=== PATIENT | male | born 1930 | race Caucasian/White ===

== ENCOUNTER 2019-07-16 03:34 | Inpatient (IN) | payer OTHER ==
[~2019-07-16] VITALS: Ht 152.4 cm; Wt 45.4 kg
[2019-07-16 03:20] VITALS: BP 125/68
--- NOTE | 2019-07-16 05:56 | NUR ---
Assumed care of patient this shift. Patient transferred here from [facility] Emergency room. Patient presents to [facility] wanting to get treatment for anxiety and depression. Patient felt like he was becoming a great burden on his family. Patient also believed that he broke the HIPPA laws and that heavy fines would follow. Patient is in good spirits upon arrival. Patient is calm and cooperative. Patient states that he only felt like killing himself so that his family would not be burdened. Patient states that he thought about using a gun but could not because that goes against his Sabianism beliefs. Patient states to RN that he wants to get treatment so that he can live life to its fullest. Patient is ambulatory. Patients assessment shows clear breath sounds, active bowel sounds, and s1 s2 heard with auscultation. We will continue to monitor per protocol.
[2019-07-16 07:47] VITALS: BP 181/93
--- NOTE | 2019-07-16 18:34 | NUR ---
0700 ASSUMED CARE OF PATIENT, PATIENT IN ROOM AT THAT TIME. PATIENT TO DAYROOM FOR BREAKFAST AT 0800, PATIENT QUIET AND CALM DENIED NEEDS AT THAT TIME. PATIENT TAKES MEDICATION WHOLE WITHOUT DIFFICULTY. PATIENT ASKS RED HAT OPEN STACK ADMINISTRATOR TO GO TO ROOM TO TALK. PATIENT STATES "I DO NOT BELONG HERE, I AM NOT CRAZY". "I TALKED TO AND THESE PEOPLE INCREASES MY ANXIETY, SO I ASKED HIM TO DC ME." "DR STATED MAYBE MONDAY". PATIENT STAYS IN ROOM MOST OF THE TIME AND TRYS NOT TO MINGLE WITH OTHERS. PATIENT LUNG SOUNDS CLEAR, BS ACTIVE, DENIES OTHER NEEDS.
--- NOTE | 2019-07-16 19:11 | NUR ---
0700 ASSUMED CARE OF PATIENT, PATIENT IN DAYROOM AT THAT TIME. PATIENT A+O AT THAT TIME, PATIENT CALM AND COOPERATIVE. PATIENT LUNG SOUNDS CLEAR, BS ACTIVE, DENIED PAIN. PATIENT SITS AT TABLE FOR BREAKFAST. 0810 PATIENT SITS WITH FIRST ASSISTANT MANAGER TO DISCUSS WHAT HE IS FEELING AND SAYS " I SAID SOMETHING THE OTHER DAY AND NO ONE BELIEVES ME. THIS IS THE END OF THE WORLD. I WILL NOT BE ABLE TO FUNCTION ANYMORE THE WORLD IS UNABLE TO TAKE CARE OF A BODY. I ASKED MY SON FOR HIS DESTINI AND THOUGHT OF SHOOTING MYSELF. i SHOULD HAVE TAKEN MY LIFE. HE GOT THE WHOLE WORLD IN HIS HANDS. MY MIND HAS BEEN CALM AND PRAYING A LOT TO GET THROUGH THIS. I STARTED THE TEST BUT COULD NOT FINISH IT. (REFERING TO TESTING WITH DR AHUJA)." PATIENT THEN EXPLAINS HOW HE DID NOT WANT TO BE A BURDEN TO FAMILY AND WAS AFFRAID HE VIOLATED HIPAA LAW BUT NOW KNOWS HE DID NOT. PATIENT AMBULATES IN HARDY WANDERING. PATIENT STANDS AT NURSES STATION AT TIMES AND GLARES OVER DOOR. APPEARS TO BE FRUSTRATED AND UNABLE TO PROCESS QUESTIONS ASKED BY FIRST ASSISTANT MANAGER. FIRST ASSISTANT MANAGER NOTED ORIENTATION OF PATIENT HAS DECREASED THROUGH OUT THE DAY. PATIENT REFUSED DINNER EVEN WITH ASSISTANCE BY FIRST ASSISTANT MANAGER, PATIENT PUSHES WRITERS HAND AWAY WHEN FIRST ASSISTANT MANAGER ATTEMPTED TO GIVE MEDICATION. MEDICATION GIVEN CRUSHED IN PUDDING. REPORT HAS BEEN GIVEN TO ONCOMING SHIFT.
[2019-07-16 21:09] VITALS: BP 169/90
--- NOTE | 2019-07-17 05:01 | NUR ---
Assumed care of pt @ 1900. Pt calm et cooperative with pleasant demeanor. Took medications whole without difficulty. Ambulates the halls ad eliza with steady gait. Socialized in dayroom with peers off et on until HS. B/P initially elevated but went down upon recheck. Health assessment with no abnormalities noted at present time. Denies SI/HI. Mild confusion later in shift when patient asked to go out front door. Currently resting in bed with eyes closed. Will continue to monitor per protocol.
--- NOTE | 2019-07-17 09:24 | NUR ---
SW attempted to meet with pt but he was hostile and confused , Sw then called spouse and left a VM. No return call yet. Called a second time 07/16 and left another VM. KARLENE will attempt to visit with pt again today
[2019-07-17 09:34] VITALS: BP 141/75
--- NOTE | 2019-07-17 13:51 | NUR ---
GREGOR called and spoke with Alberto son [phone], and completed the intake assessment ad TP. Gregor set up a family meeting for 07/17 at 11 am. Family would like pt to return home after intp psych stay. Gregor will also help get DPOA if able.
--- NOTE | 2019-07-17 14:34 | NUR ---
THIS TRANSLATIONAL SPECIALIST WAS CONTACTED BY STAFF TO VISIT PATIENT. 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 HE WAS HAVING GREAT DIFFICULTY STRINGING TOGETHER HIS THOUGHTS. STAFF SHARED HE IS MORE "WITH IT IN THE MORNINGS." THIS TRANSLATIONAL SPECIALIST WILL ATTEMPT TO SEE THE PATIENT TOMORROW MORNING.
--- NOTE | 2019-07-17 17:09 | NUR ---
0700 ASSUMED CARE OF PATIENT, PATIENT IN ROOM AT THAT TIME. 0800 PATIENT TO DAYROOM FOR BREAKFAST, PATIENT ATE WELL. MEDICATION TAKEN WHOLE WITHOUT DIFFICULTY. DENIED NEEDS AT THAT TIME. 1000 PATIENT WALKING AROUND WITH A PAPER AND ASKING OTHER STAFF MEMBERS QUESTIONS ABOUT HIS PAPER. THE WORKERS' COMPENSATION HEARINGS OFFICER ASKED PATIENT TO COME SIT WITH AND TALK. PATIENT GOES IN TO EXPLAINING HIS STORY WRITTEN ON HIS PAPER. THE STORY IS THE SAME STORY GIVEN TO ME THE DAY BEFORE. PATIENT REFERS TO HIS INABILITY TO REMEMBER DIFFRENT PARTS OF THE DAY A SWITCH THAT TURNS OFF AND ON OR UP AND DOWN. WHEN HE IS NOT AWARE OF WHAT IS HAPPENING TO HIMSELF AND UNABLE TO REMEMBER THINGS HE STATES THE SWITCH CHANGES QUICKLY. HE STATES " I DO NOT WANT TO BE A BURDEN TO MY FAMILY AND I AM TRYING TO WORK THROUGH THIS. I HAVE GOALS". THE GOALS ARE ON HIS LIST. PATIENT WANTS TO FEEL VALUED AND DOES NOT FEEL THIS WAY, NOT BEING ABLE TO DO WHAT HE USE TO. PATIENT WANTS THINGS TO DO TO OCCUPY HIMSELF AND NOT OVER THINK. PATIENT WAS A&O X4 LUNG SOUDS CLEAR, BS ACTIVE, NO C/O PAIN. AMBULATES IN HALLWAY WITH A STEADY GAIT. CONFUSED AT TIMES. PATIENT REQUESTED TO SEE THE REPRODUCTION PRODUCTION MANAGER TODAY BUT WAS UNABLE TO PROCESS WORDS AND THOUGHTS DURING HIS VISIT. REPRODUCTION PRODUCTION MANAGER WILL RETURN IN AM TO SPEAK WITH PATIENT. 1700 PATIENT EATING DINNER AT THAT TIME. WILL CONTINUE TO OBSERVE
--- NOTE | 2019-07-17 18:13 | NUR ---
PATIENT CALLED SON AND TELLING THEM VIA PHONE "THIS IS A EMERGENCY SUICIDE ATTEMPT" LUMBER ESTIMATOR TELLS PATIENT TO NOT FORGET ABOUT HIS GOALS AND PLAN TO GET BETTER. PATIENT THEN STATES "YES I REMEMBER AND I FEEL BETTER NOW". PATIENT TELLS SON, "IM OK NOW, I NEED TO CALL YOUR MOM SO IM GONNA HANG UP. CALL FROM TRANSFERED TO PHONE FOR PATIENT. WILL CONTINUE TO OBSERVE.
[2019-07-17 19:37] VITALS: BP 193/112
[2019-07-17 21:33] VITALS: BP 167/75
[2019-07-17 22:28] VITALS: BP 167/75
--- NOTE | 2019-07-17 22:33 | H ---
[facility] [place] [address] HISTORY AND PHYSICAL Name: JOHN MCCAIN Room #: 518A-A ADM IN M.R.#: [id number] Admission: 07/16/19 Attend Phys: Jeromy Gibbs DO Discharge: Date of : 32 Report #: [id number] THIS REPORT FOR: cc: Rocael Johnston MD,Rocael Gibbs,Jeromy Fernández DO ~ CC: Jeromy Johnston DATE OF SERVICE: 07/16/2019 INPATIENT PSYCHIATRIC EVALUATION ATTENDING PHYSICIAN: Jeromy Gibbs DO. CHUTE MAN: Jeromy Stoll MD REASON FOR ADMISSION: Presented to [facility] with suicidal ideation in the Geriatric Psychiatry Unit there, so he was transferred here for further evaluation and treatment. SOURCES OF INFORMATION: Interview with the patient, records from [facility] as well as chart notes from hospital staff, have not reached his family, but the information gathered all add as an addendum is prudent. The patient's primary care physician is Rocael Johnston MD. An 88-year-old male who presented in the Emergency Department, had been at [facility] with reported depression and suicidal statements at his home. The patient was very anxious in the ED and distraught as he really believes has ruined his family. He is unable to articulate how well, but states he believes he has financially ruined them and also believes he may have violated the HIPAA act after recent psychiatric hospitalization. He reports recently being at [facility]. He states he took the name and address of a fellow patient from that patient in order to reach out to him after they were discharged and was worried he may have violated HIPAA and broken the law. He states while he was there a week ago he feels that something changed and he was more forgetful and distracted. Family states that he was making statements such as the family would be better off without him and that he wants his gun back as well as walking into the kitchen to get a knife. The patient not answering a lot of questions in the ED and ruminating over the fact that family would be better off without him. Family in the ER states the patient is unusually depressed and his actions are atypical for him. They reports that he was much more anxious than normal and seems slightly distracted and forgetful. [facility] [address] [place] [address] HISTORY AND PHYSICAL Name: JOHN MCCAIN [facility] Room #: 518A-A [facility] IN ..#: [id number] Admission: 07/16/19 Attend Phys: Jeromy Gibbs DO Discharge: Date of : 32 Report #: [id number] REVIEW OF SYSTEMS: From the Emergency Room at [facility]: CONSTITUTIONAL: No known fever, no chills, no sweats, no weakness. SKIN: No jaundice. No rash, no lesions, no petechiae. EARS, NOSE, MOUTH, THROAT: No ear pain, no sore throat, no congestion, no hoarseness. RESPIRATORY: No shortness of breath, no cough, no orthopnea, no wheezing. CARDIOVASCULAR: No chest pain or palpitations, no edema. GASTROINTESTINAL: No nausea, no vomiting, no diarrhea. No GI bleeding. GENITOURINARY: No dysuria, no hematuria, no discharge, no pain. MUSCULOSKELETAL: No back pain or trauma, no muscular pain. NEUROLOGIC: No headache, no dizziness, no numbness, no weakness. PSYCHIATRIC: No sleeping problems. No irritability, no mood swings, no depression. Obviously, he is endorsing depression, so I would disagree with the review of systems on that note. HEME/LYMPH: No bleeding tendency, no bruising tendency. ALLERGY/IMMUNOLOGY: No seasonal allergies. No food allergies. No recurrent infection from impaired immunity. All other review of systems was negative. The patient denies alcohol and drug use history. No recent travel. 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 HOME MEDICATIONS: Include Eliquis 20 mg a day, mirtazapine 15 mg at night, Cozaar 25 mg a day, which I question if that is an appropriate dose and he was recently started on sertraline 50 mg daily. He was initially fairly hypertensive in the ED, that came down. Physical exam was grossly normal that was done at [facility] the ED noted after speaking to a friend of myself, the patient is more calm, assured me he did not violate any laws and his son reassured me that he has health insurance and that there is no trouble for the family for making hospitalization. The patient's family does recount that he has been doing this because he gets fixated on a problem, wants it resolved. They diagnosed him with depression and suicidal ideation, mild dehydration, renal insufficiency. That is why they transferred care to a different provider. He was given a bolus of sodium chloride, checked for coronavirus, most likely had environmental property assessor do a psychiatric assessment on the patient and her report noted that he was brought to the ED by [employer] because the patient was at home with his and he made statements that he needed to shoot himself or use a knife to kill himself. He believes he has ruined the family and this is the only way to fix it. He also believes that Madhu Linder has been placed upon him by God. The patient initially could not talk with the counselor and was given Xanax, once his blood pressure came down he was able to converse. He still had delusional, hyperreligious, paranoid thoughts. He endorsed insomnia, not eating x 1 week, anxious, no interest in anything anymore, confusion and impulsivity. He has had a rapid decline since COVID quarantine, previously he was volunteering for [employer], [employer] and his rastafari. 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 says for 57 years, and does live at home with . He has 2 sons and they are very supportive. He takes medications, but did not take them on the day of ER presentation. He has a strong spiritual belief system. LABORATORY DATA: From [facility] white count 5.9, H and H 14.9 and 43, platelet count 242. Electrolytes: Sodium 134, potassium 4.6, chloride 96, bicarbonate 25, anion gap 13, glucose 117, BUN 21, creatinine 1.2, calcium 9.5. GFR is estimated at 52.8, albumin 4.1, total protein 6.8, high sensitivity troponin was 34, alkaline phosphatase 73, AST 20, ALT 15, total bilirubin 0.6. TSH 2.63. Alcohol less than 10. COVID-19 was not detected. Urinalysis had minor ketonuria, otherwise, normal. UDS is negative. Electrocardiogram was done at [facility], which showed normal sinus rhythm with premature ectopic complexes, moderate ST depressions. QTc was 377. He was tachycardiac with ventricular rate of 116, MI interval was not able to be calculated. Vital signs this morning, temperature 36.6, pulse 55, respirations 15, BP 181/93, O2 sat 94%. CURRENT MEDICATIONS: Ordered here at [place], mirtazapine 15 mg p.o. at bedtime, sertraline 25 mg p.o. daily, losartan potassium 25 mg p.o. daily, rivaroxaban, which is Xarelto 20 mg p.o. daily. Otherwise, just the house PRNs. PHYSICAL EXAMINATION: Under nourished appearing, a bit disheveled. MENTAL STATUS EXAMINATION: This is a well-developed, ill-appearing male appearing stated age. Attention limited. Concentration limited. Speech normal at times and then difficulty verbalizing. Some psychomotor agitation, some psychomotor retardation. Mood and affect congruent, constricted. Denied SI or HI. Denied auditory, visual, or tactile hallucinations. The patient was focused in that he has ruined or harmed the liability of his family somehow. Memory was formally tested, with SLUMS. He was not able to complete visual spatial paragraph at the end, but he was on 0/5 item recall. He was good at orientation, otherwise 0/3 in the money making question and 0/3 in verbal fluency and he was oriented as stated already. FORMULATION: An 88-year-old male brought by police, brought by family as well for concern of suicidal ideation. It is unclear at present time if he has been diagnosed with dementia previously. DIAGNOSES: At this time, unspecified depression with SI. 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 Will need to clarify; that has been previously diagnosed. Once we get him a little calmer we will get a better cognitive screening and I expect it to be a likely diagnosis. [facility] [address] [place] [address] HISTORY AND PHYSICAL Name: JOHN MCCAIN Room #: 518A-A ADM IN ..#: [id number] Admission: 07/16/19 Attend Phys: Jeromy Gibbs DO Discharge: Date of : 32 Report #: [id number] PLAN: admitted to geriatric psychiatry. Evaluate, stabilize, obtain collateral, medical consultation by hospitalist. I reduced the sertraline to 50 mg p.o. daily as there can be some anxiety, psychomotor agitation. As this was a new start, we will keep the mirtazapine at bedtime for sleep and appetite. We will monitor his blood pressure right now. He is still hypertensive. ESTIMATED LENGTH OF STAY: 10-14 days, will evaluate for functional level. There may be a need for placement in this case. Time spent on interview, review of records, evaluation is at least 60 minutes. <ELECTRONICALLY SIGNED> By: Jeromy Gibbs DO 07/17/19 [id number] Jeromy Gibbs DO /nt
--- NOTE | 2019-07-18 03:47 | NUR ---
Assumed pt care at 1900. Pt A/OX4 on initial assessment and denied any SI/HI,and talked about his goals written in his room. After some time pt was out to the day room disoriented and unable to find any words;BP elevated. Medicated with HS meds w/o problems and pt reassessed and BP was lower and pt oriented again. Denied pain on assessment. Up ad eliza. Resting quietly at this time in bed with no distress noted.Will continue to monitor pt.
--- NOTE | 2019-07-18 09:20 | NUR ---
0700 ASSUMED CARE OF PATIENT, PATIENT IN ROOM SITTING ON BED. 0730 PATIENT NOT COMMUNICATING WITH STAFF. UNABLE TO OBTAIN VS AT THAT TIME. SUPERVISOR CELLARS ASKS PATIENT QUESTIONS AND PATIENT LOOKS CONFUSED AND DOES NOT SPEAK. 0810 PATIENT AMB TO DAYROOM AND STATES "WHAT I SAID TO YOU LAST NIGHT, WELL I TALKED TO MY FAMILY" PATIENT THEN SITS DOWN TO EAT BREAKFAST. WILL CONTINUE TO OBSERVE
--- NOTE | 2019-07-18 11:52 | NUR ---
Mejia was given his B12 injection. He tolerated this IM without any distress. He has not taken his Zoloft 50mg or Seroquel 25 mt will attempt to administer these medication at a later time.
--- NOTE | 2019-07-18 13:04 | NUR ---
1215 Indra did take his zoloft and seroquel without any issues.
--- NOTE | 2019-07-18 13:42 | NUR ---
Gregor spoke with pt's son Alberto and he stated that this pt's father committed suicide by hanging in a barn. SW provided education about therapy and ALZ that includes structure and meds. GREGOR suggested that pt can see DR Cabrera for psych and they already have a Baptism therapist this can use. Gregor and Dr carlisle had met with pt and family call, Dr carlisle went over the meds changes and DX> D/C is expected to be home with family support and spouse.
--- NOTE | 2019-07-18 14:03 | NUR ---
Gregor and kathleen attempted to complete the DPOA paperworjk but pt was unable to communicate this pm, and was anxious. Will f/u tomorrow.
--- NOTE | 2019-07-18 16:59 | NUR ---
PATIENT CONTINUES TO GO IN AND OUT OF BEING ABLE TO VERBALLY RESPOND TO STAFF AT TIMES IF THE PATIENT IS STUCK IN HIS OWN THOUGHTS. CAR ATTENDANT HAD DIFFICULTY GETTING PATIENT TO TAKE MEDICATION. DR AHUJA ASSISTED AND PATIENT RESPONDED AND TOOK MEDICATION. AT TIME CAR ATTENDANT OBSERVES PATIENT HOLDING HEAD AND UNABLE TO DO ANYTHING, THEN OTHER TIMES HE IS CALM AND SITS AND TALKS TO STAFF JUST FINE. WILL CONTINUE TO OBSERVE.
--- NOTE | 2019-07-18 18:39 | NUR ---
PATIENT NOTED FOR THE PAST 40 MIN WALKING THE LONG HALLWAY BACK AND FORTH. PATIENT IS CALM AND COOPERATIVE WHEN ASKED QUESTIONS. PATIENT STATES "I WALK TO KEEP MY MIND BUSY". WILL CONTINUE TO OBSERVE.
[2019-07-18 20:39] VITALS: BP 127/79
[2019-07-18 22:07] LABS: SYPHILIS AB Non Reactive (Non Reactive)
--- NOTE | 2019-07-19 05:18 | NUR ---
Assumed care of pt @ 1900. Pt calm et cooperative with a few episodes of "blanking out" where he does not respond verbally to questions. Pt will return to responsiveness after a few minutes. Took medications whole without difficulties. Ambulates the halls ad eliza with mostly steady gait. Socialized in dayroom with peers until HS. VSWNL. Health assessment with no abnormalities @ present time. Denies SI/HI. Currently resting in bed with eyes closed. Will continue to monitor per protocol.
[2019-07-19 16:23] VITALS: BP 127/79
--- NOTE | 2019-07-19 17:23 | NUR ---
Pt was seen by me in day room staring into space. After introducing my self Iasked Indra how he was doing, there was no answer. After a while Indra looked intense,worried and fearful. Orentated x1 poor eye contact. Indra appeared to be in a trance like condition, saying a few short phrases like "Oh God", and "its the end of the universe" after which he would twist the small bible he next to him. After this he looked fearful and then returned to a blank stare. Staff noted that when he was in this statehe was incontent of urine. Indra was not interested in eating , breakfast was offered later in the day and was and has eaten 100% of all measl offered Indra refused his PO medications. was made aware and IM Zyprexa was ordered and given. Lungs were clear x2, bowel sounds were quiet, pedal pulse was strong on rt &left feet. No edema was noted on either extremedies. At the time of this writing Indra is sitting quietly in the day room. room medications made aware &IM medication was ordered and given and given. No SI was verbalizied, by pt today.
[2019-07-19 19:35] VITALS: BP 156/97
--- NOTE | 2019-07-19 20:40 | NUR ---
Assumed patient care at change of shift. Pt. was in his room sitting on the bed when assessment was completed. His affect is perplexed and he was able to correctly answer his full name and , where he is, and what year it is. As time progressed he became increasingly confused and now at 2039 he cannot complete a full statement. He starts a sentence, gets 1 or 2 words in and then stops and is confused. He refused PO medications despite multiple attempts. Zyprexa IM was given approximately 2029 with assist of 1. His physical assessment is WNL with no abnormalities charted in nursing assessment.
[2019-07-19 21:26] VITALS: BP 127/79
--- NOTE | 2019-07-19 22:44 | NUR ---
Nursing responded to bed alarm sounding. Patient standing at side of bed moaning. Patient pushing buttons on bed. Nurse attempted to speak with patient for several minutes in his room. Attempted to ask what was wrong. Patient feeling around on his bedside table, reaching for papers that he has. Patient stated "the world is over, it's my fault". Attempted to reassure patient several times that everything is ok, he is at the hospital, he is safe. Attempted to speak with patient about his conversation he had on the phone with his . Patient fixated on delusion that he had destroyed the world. At one point, patient stated, "the universe". Attempted to assist patient back to bed, patient grabbed at nurses arms, holding tight, not letting go. Nurse had to repeat over and over, "you are at the hospital, everything is ok". After several seconds, patient loosened his director aeronautics commission and nurse was able to remove his director aeronautics commission. Offered for patient to come to dayroom and read his Bible. Patient not able to give any type of answer. Patient did walk with nurse to dayroom as nurse was holding his Bible. Attempted to assist patient sit down in chair in dayroom when patient started to grab nurse again. Another staff had to assist. Patient was able to be assisted to seating position in recliner. Patient holding his Bible, continuing to repeat "the world is over". Offered patient water, which he pushed away. Asked patient if he was in pain, he only shook his head side to side. Due to increase in physical aggression and severity of delusional state, call placed to BIRGIT Mae. Order obtained for Farrah JACOBSENN for severe agitation.
[2019-07-20] VITALS (7 sets, daily range): BP systolic 107–198; BP diastolic 64–125
--- NOTE | 2019-07-20 05:26 | NUR ---
Entered patients room and patient was slowly pacing around the end of the bed with an unsteady, wobbly gait. Lab was also in the room. Patient was mostly nonverbal. Patient declined to respond to requests to sit on the bed and stated that he had destroyed the world. Patient was becoming increasingly resistant and trending up towards aggression with pinching. Patient was escorted by [address] the [facility]. Patients resistance and aggressive behaviors were still trending upwards. Patient was then helped to a reclining chair and staff carefully steadied the patient while geodon was being drawn up. Patient recieved an im injection of geodon and staff stayed with patient as the medication was taking effect. We will continue to monitor per hospital protocol.
[2019-07-20 05:43] LABS: CALCIUM 8.9 mg/dL (8.5-10.1); CREATININE 1.3 mg/dL (0.7-1.3); POTASSIUM 4.3 mmol/L (3.5-5.1)
--- NOTE | 2019-07-20 15:07 | NUR ---
Indra was in the his room when I came on duty. Staff awoke him from breakfast when it arrived on the floor. Pt appeared fretfull, nonverbal, and anxious & alert and orientated x1. After being encouraged many times to some breakfast, Indra ate about 25% of the meal offered. Indra also refushis Am medications @ 9 and then offered @11 and also refued. Lunch time meal 75% of he meal was eaten. Indra appears to be in a trance like state more often and longerthan yesterday. Indra took his Am medications @2pm appeared happy and cooperatated in taking his medications except his Zyprexa which was given IM @ 9 am. At about 2PM Indra yelled out loud "Were all going to be saved" in front of the Nurses station It appeared he was preaching. One of the nurses asked if he would take his Am medications and he said "yes Ill take any thing you give me." Indra did join in on group activityin day room. At present Indra is sitting in the day room. Shortly there after he appied to returned into a trance. as ordered. .
--- NOTE | 2019-07-20 18:08 | NUR ---
At this time is in his room looking at some mail that he got. He continues to look depressed and fearful and sighs alot when spoken too, along with long pauses beteeen words. Note at this time rt. leg has a bluish hue and has +1 to 2 edema. Pt did state he feeling blah at present.
--- NOTE | 2019-07-20 20:59 | NUR ---
Assumed care at change of shift. When rounding on patient he was found in his room bending slightly over and holding his suprapubic area. I asked him if he needed to go to the bathroom and he stated, "I'm afraid I already did". Pt. ambulated to bathroom with assist x 2 and placed on toilet. Pull-up brief was saturated in front and back and changed along with pants. Pt. was confused and slightly resistive to cares. He startles easily. The flushing toilet startled him, and at times he startles when just addressing him by his name. He is alert but cannot state his name, , place, time, or situation. His affect is anxious, angry, flat, and perplexed. He was asked if he has any SI/HI/AH/VH. He did not answer question. He did not answer any questions. He starts to make a comment and gets 1 to 2 words out and stops. He grabs at caregivers hands and arms during cares. His physical assessment is abnormal only for trace bipedal edema. Pt. took PO meds at hs with multiple attempts and 2 people. 1 person to hold hands firmly and the other to get him to take a bite of yogurt. He took no further bites after that. No choking or coughing noted after swallowing crushed meds in yogurt. Pt's called to check on him and he was assisted with the phone. I could hear her talking and this nurse was conversing with her, but patient did not talk to her. She was overheard telling patient "I can't wait til you talk again". He again had no response. Pt. has yellow shirt on, yellow falls band on, and his name is printed on yellow paper that is placed on door jam.
--- NOTE | 2019-07-20 22:01 | NUR ---
When patient ambulates his gait is slow and steady when he is not having episodes of catatonia-like confusion and flatness. During these episodes his gait is slow and unsteady and he startles easily. Bed alarm on.
--- NOTE | 2019-07-20 22:40 | NUR ---
At approximately 2130 patient walked down hallway with a slow and steady gait and asked for water which he obtained and then returned to his room without incident. He was alert and oriented x 2. He could not consistently identify place and he could not speak to discharge planning. His affect was appropriate and congruent and no behaviors were noted. He said "please" and "thank you" when making request. He was continent of urine with consistent flow heard.
--- NOTE | 2019-07-20 22:44 | NUR ---
Bed alarm heard and patient was found in bathroom urinating with what sounded like a consistent flow. He was pleasant and cooperative and returned to bed with slow and steady gait. Bed alarm on.
[2019-07-20 23:15] LABS: FERRITIN 143 ng/mL (26-388); TSH 1.659 uIU/mL (0.358-3.740)
[2019-07-20 23:46] LABS: FOLIC ACID 16.3 ng/mL (8.6-58.9)
--- NOTE | 2019-07-21 03:43 | NUR ---
Pt. sitting on side of bed with bed alarm on. No attempts to stand. Pt denies needing to void. No signs or symptoms of pain or distress noted and pull-up brief appears to be dry.
--- NOTE | 2019-07-21 05:21 | NUR ---
At approximately 0415 pt.'s bed alarm was activated. Upon entering room pt was found standing outside bathroom door. He was asked he needed to urinate. He said he didn't know. When asked if he needed changing he stated "yes". Pt. gait was unsteady and he startled easily. Bed alarm on.
--- NOTE | 2019-07-21 06:43 | NUR ---
Pt.'s bed alarm went off at approximately 0600. Pt. was found in bathroom urinating. Steady stream heard. Pt. was continent. Pt. refused to even sit on the side of the bed despite approximate 40 minutes of trying with 2 nurses. He startles quickly and becomes combativeness grabbing at staff arms and hands. After 10 minutes of coaxing he ambulated with stand-by assist to day room where a chair was made ready with an alarm. When patient reached the doorway, however, he refused to enter room and ambulated back to his room. Report of patient's status given to day nurse discharge planner and patient's assigned RN, Beverley.
[2019-07-21 07:36] VITALS: BP 114/72
[2019-07-21 08:49] LABS: ABSOLUTE NEUTROPHILS 3.3 thou/uL (1.4-8.2); BASOPHILS 0.9 % (0.0-2.0); EOSINOPHILS 1.7 % (0.0-3.0); HEMATOCRIT 43.4 % (42.0-52.0); HEMOGLOBIN 14.8 gm/dL (14.0-18.0); LYMPHOCYTES 30.8 % (24.0-44.0); MCH 32.8 pg (26.0-34.0); MCV 96.4 fL (80.0-100.0); MONOCYTES 10.1 % (1.0-8.0); PLATELET COUNT 270 thou/uL (150-400); POLYS 56.5 % (36.0-66.0); RDW 13.1 % (10.5-14.5); WBC 5.8 thou/uL (4.0-11.0)
[2019-07-21 09:08] LABS: ALBUMIN 3.8 g/dL (3.4-5.0); CALCIUM 9.1 mg/dL (8.5-10.1); CREATININE 1.3 mg/dL (0.7-1.3); MAGNESIUM 2.1 mg/dL (1.8-2.4); POTASSIUM 4.2 mmol/L (3.5-5.1); TOTAL BILIRUBIN 0.7 mg/dL (<0.1-1.0); TOTAL PROTEIN 7.1 g/dL (6.4-8.2)
--- NOTE | 2019-07-21 10:13 | NUR ---
0700 ASSUMED CARE OF PATIENT, PATIENT UP AMB IN HARDY. 0800 PATIENT CONTINUES TO WANDER THE HARDY, PATIENT ALERT & ORIENTED X1 AT THAT TIME. PATIENTS ORIENTATION CHANGES FROM ONE MIN TO ANOTHER. PATIENT DOES NOT ANSWER WHEN ASKED QUESTIONS. PATIENT SITS AT TABLE FOR BREAKFAST AND TAKES A FEW MIN TO START EATING. MEDICATIONS TAKEN WHOLE WITHOUT DIFFICULTY. 1000 PATIENT ASKED TO GO TO ROOM FOR EKG AND PATIENT DOES NOT ANSWER. PATIENT STARES BUT DOES NOT RESPOMD. EKG WILL BE ATTEMPTED LATER WILL CONTINUE TO OBSERVE
--- NOTE | 2019-07-21 12:10 | EKG ---
[facility] [place] [address] ELECTROCARDIOGRAM REPORT Name: JOHN MCCAIN Room #: [facility] ADM IN M.R.#: [id number] Admission: 07/16/19 Attend Phys: Jeromy Gibbs DO Discharge: Date of : 34 Report #: [id number] THIS REPORT FOR: cc: Rocael Johnston MD, John MD Park,Fred Logan MD ~ THIS REPORT FOR: //name// [facility] Test Date: 2019-07-21 Test Time: 12:00:49 Pat Name: JOHN MCCAIN Department: Room: [facility] Gender: M Improvement Analyst: JESSICA : [id number] Requested By: Misty Hernandez Order Number: [id number] MD: Fred Gannon Measurements Intervals [place] Rate: 69 P: 83 NH: 170 QRS: 59 QRSD: 94 T: 42 QT: 365 QTc: 391 Interpretive Statements Sinus rhythm Atrial premature complexes in couplets Right atrial enlargement Consider left ventricular hypertrophy No previous ECG available for comparison Electronically Signed On 07-21-2019 12:08:57 CDT by Fred Gannon [email or web address] <ELECTRONICALLY SIGNED> By: Fred Gannon MD 07/21/19 1208 1200 1200 Fred Gannon MD /TROY
--- NOTE | 2019-07-21 17:07 | NUR ---
PATIENT RECIEVES CALL FROM . PATIENT UNABLE TO TALK, ONLY SAYS "THIS IS THE END OF THE UNIVERSE". SATELLITE DISH REPAIRER ATTEMPT TO ASSIST PATIENT WITH CALL AND PATIENT UNABLE TO COMMUNICATE AT THAT TIME. SPEAKS TO HIM FOR FEW MIN THEN SATELLITE DISH REPAIRER TAKES PHONE AND SPEAKS TO . CRYING AND ASKS ABOUT HIS INTAKE. UPDATED ON STATUS. PATIENT STANDS AT NURSES STATION CONFUSED AND DOES NOT SPEAK OR ANSWER QUESTIONS. WILL CONTINUE TO OBSERVE.
[2019-07-21 20:00] VITALS: BP 100/59
[2019-07-21 21:10] VITALS: BP 100/59
--- NOTE | 2019-07-22 01:18 | NUR ---
PATIENT SAT UP IN DINING ROOM TONIGHT UNTIL BEDTIME TONITE. HE WAS A/0X4. PT WAS CALM AND COOPERATIVE AND TOOK HIS MEDS WHOLE WITH WATER. HE DENIED PAIN. 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 HE WAS ABLE TO TELL ME ABOUT A DVT HE HAD A YEAR AGO IN HIS RIGHT ANKLE. HE HAD STEADY GAIT. PT IS A FALL RISK AT 45. PT IS CONTINENT AND WENT TO BED. HE AWOKE A COUPLE OF TIMES TO USE THE BATHROOM. HIS BED ALARM NOTIFIED STAFF. 3RD TIME UP PT WAS CONFUSED A/0X1, AND UNSTEADY ON FEET AND UNABLE TO REDIRECT. PATIENT WAS BROUGHT OUT TO DINING ROOM TO SIT IN A RECLINER TO SLEEP AT 0030. HE WAS MUMBLING ABOUT THE [place] AND WAS FRUSTRATED AND ANGRY. HE WOULD NOT SPEAK TO THIS NURSE WHEN TRYING TO CLARIFY WHAT HE WAS MUMBLING. THIS NURSE SAT IN DINING ROOM TO CHART. AT 0120 PT BECAME LUCID AGAIN AND ASKED HOW HE GOT OUT TO DINING ROOM AND WHY. EXPLAINED TO PT. ASKED PATIENT IF HE NEEDED TO USE THE RESTROOM AND HE STATES HE ALREADY DID. HE STATES HE WANTS TO GO BACK TO ROOM AND GO TO BED. PT GOT UP FROM CHAIR AND WAS STEADY ON HIS FEET AND WALKED BACK TO ROOM WITH PROCEDURE ANALYST WHO IS HELPING HIM WITH NEW BRIEF AND INTO BED. BED IS IN LOW POSITION AND BED ALARM IS ON.WILL CONTINUE TO MONITOR.
--- NOTE | 2019-07-22 04:23 | NUR ---
PATIENT AWOKE AT 0310 TO USE THE RESTROOM. HIS BED ALARM HAD GONE OFF AND ANOTHER NURSE WENT TO HELP HIM. I CAME BACK FROM MY LUNCH BREAK TO CHECK ON PATIENTS AND GENEVIEVE BOLIVAR WAS WITH PATIENT TRYING TO DIRECT HIM BACK TO BED. HE WAS PUSHING AT HER AND WAS CONFUSED. HE STATES THE WORLD IS FALLING APART. I STEPPED IN AND TOOK PATIENT'S HAND SPEAKING CALMLY TO HIM AND DIRECTING HIM BACK TO BED. PT WAS CONFUSED AND UNCERTAIN WHAT HE WAS TO DO. SEEMED TO HAVE TO INSTRUCT HIM TO TAKE EACH STEP. HE GOT CONFUSED WITH INSTRUCTIONS WHEN ASKED TO SIT ON BED. HE BECAME UNDIRECTABLE AT ONE POINT AND BECAME AGITATED AND PUSHING AT PEOPLE. GAVE PATIENT SPACE AND ASKED GENEVIEVE MCGILL TO PLEASE DRAW UP A PRN. SECURITY WAS CALLED I STAYED WITH PATIENT. 2 SECURITY GUARDS CAME UP AND HELD PATIENT'S ARMS I GAVE INJECTION OF OLANZAPINE IM IN RIGHT HIP. SECURITY AND THIS NURSE HELPED TO GET PATIENT INTO BED. THIS NURSE STAYED WITH PATIENT UNTIL HE FELL ASLEEP. BED IN LOW POSITION AND BED ALARM ON. STAYED WITH PATIENT FOR 20 MINUTES CALMLY SPEAKING TO HIM AND JUST SITTING BESIDE BED UNTIL HE FELL ASLEEP.
[2019-07-22 07:28] VITALS: BP 116/57
--- NOTE | 2019-07-22 10:54 | NUR ---
Pt was in the Day room this am when I arrived on duty. Dajuan said "you have untill 5 pm to get me out of this unit" I said I would pass this along to the Dr. who would talk to him about his discharge. Dajuan ate most of his breakfast. When the DrCayden arrived he explained that his was not able to care for him at home. Dajuan asked to talk with his after the DR talked to her. At times Dajuan appeared some what aggitated but was distracted by talking to director social or others. Am medications taken, Lungs clear x2 pedal pulse strong and regular & bowels sounds heard.
--- NOTE | 2019-07-22 11:27 | NUR ---
0700 ASSUMED CARE OF PATIENT, PATIENT SITTING IN DAYROOM AT THAT TIME WITH LAP DAVIAN IN PLACE (OPENING TO FRONT). 0800 PATIENT SITTING AT TABLE FOR BREAKFAST BUT DOES NOT EAT. PATIENT IN A DAZE AT THAT TIME. PATIENT SWITCH IS ON AND PATIENT STATES. MEDICATION TAKEN WHOLE WITHOUT DIFFICULTY. PHYSICIAN VICE PRESIDENT SITS AND TALKS TO PATIENT. PATIENT STARTS STATING "IT'S NOT JUST THE WHOLE WORLD INVOLED NOW, ITS THE WHOLE UNIVERSE". PATIENT THEN SAYS "I COULD NOT CONVINCE THEM (FAMILY) TO ASSIT ME WITH ASSISTED SUICIDE". PATIENT THEN TELLS PHYSICIAN VICE PRESIDENT HE DOES NOT REMEBER OR KNOW WHEN HE IS NOT HERE. PATIENT STATING " MY PHYSICAL BODY CHECKS OUT BUT MY MIND DOES NOT. I LOOK BACK, I HAD NO IDEA WHAT THIS HAS COME TOO". PATIENT GRABBING HEAD AND FRUSTRATED HE TRIES TO UNDERSTAND AND MAKE PHYSICIAN VICE PRESIDENT UNDERSTAND HIS THOUGHTS. DIFFICULTY EXPLAINING THOUGHTS AT TIMES. PATIENT AGREES HE HAS A SWITCH AND DOES NOT REMEMBER ANYTHING WHEN IT IS OFF. PATIENT SITTING IN DAYROOM SITTING QUIETLY. WILL CONTINUE TO OBSERVE.
--- NOTE | 2019-07-22 18:19 | NUR ---
PATIENT APPROCHES NURSES STATION REQUESTING TO TALK TO STATE WILDLIFE OFFICER. PATIENT ASKS STATE WILDLIFE OFFICER TO BE HIS ADVOCATE AND EXPLAIN TO DR REGARDING HIS NEED TO GO HOME HIS CONDITION WILL NOT CHANGE. PATIENT STATES "MY THOUGHTS CAN NOT BE ERASED AND I FEEL IF I AM WORSE NOW THAN WHEN I FIRST ARRIVED". "I CAN DO THE SAME AT HOME I AM DOING HERE". PATIENT GOES INTO EXPLAINING A DREAM WITH THE ARCH LAZ AND THE UNIVERSE AND HOW THIS IS THE END SO IT HAS TO STOP HERE. PATIENT CONTINUES TO WALK THE HALLS.
[2019-07-22 19:44] VITALS: BP 115/67
[2019-07-22 20:30] VITALS: BP 115/67
--- NOTE | 2019-07-22 21:01 | NUR ---
Assumed care of patient this pm shift. Patient confused asking to see his repeatedly stating that she has been waiting in the waiting room for over 6 hours. Patient is redirectable. Patient denies hi/si. Patient takes medications whole. Patient ambulates without assistance. Patient continent of bowel and bladder. Patients assessment shows clear breath sounds, active bowel sounds, and s1 s2 heard with auscultation. We will continue to monitor per hospital policy.
--- NOTE | 2019-07-22 21:30 | NUR ---
Assumed care of patient this pm shift. Patient pacing the room and states that he ruined the world. Patient appears very anxious. Patient did take night time medications but was very hesitant. Patient takes medications whole. Patient ambulates without assistance. Patient is not answering questions well so unable to determine si. Patients assessment shows clear breath sounds, active bowel sounds, and s1 s2 heard with auscultation. Patient is continent of bowel and bladder. We will continue to monitor per hospital policy.
--- NOTE | 2019-07-23 07:34 | NUR ---
0700 ASSUMED CARE OF PATIENT, PATIENT UP AMB IN HARDY AT THAT TIME. PATIENT CONFUSED AND UNABLE TO COMMUNICATE AT THIS TIME. WILL CONTINUE TO OBSERVE.
--- NOTE | 2019-07-23 11:10 | NUR ---
AT 1000 PATIENT AMBULATES IN THE HARDY WITH A DAZED LOOK. WHEN APPROCHED PATIENT UNABLE TO TALK. PATIENT GRABS HIS HEAD IF FRUSTRATED HE CAN NOT SAY WHAY HE FEELS. AFTER A FEW MIN OF TRYING TO COMMUNICATE WITH PATIENT, PATIENT ALL OF THE SUDDEN STARTS TALKING. PATIENT STARTS TO TELL RADIOTELEGRAPHIST OF WHAT HIS THOUGHTS ARE FROM LAST NIGHT. PATIENT STATES HE IS UNAWARE OF WHAT HAPPENS TO HIM WHEN HIS SWITCH IS OFF. LUNGS SOUNDS CLEAR, BS ACTIVE, NO C/O OF PAIN. MEDICATIONS TAKEN WHOLE WITH SOME DIFFICULTY WITH PATIENT WANTING TO TAKE MEDS. PATIENT STATES "WHY DO I TAKE MEDICATION IF THIS WILL NOT HELP ME ERASE WHAT HAS BEEN ALREADY SAID OR MY THOUGHTS. THIS IS THE END SO NO REASON TO CONTIUE TAKING MEDICATION". DR AHUJA APPROCHES PATIENT AND WHEN RADIOTELEGRAPHIST EXPLAINS TO PATIENT THAT THE MEDICATION WAS ORDERED BY THE DR, PATIENT TAKES THE MEDS. 1100 PATIENT WALKING UP AND DOWN THE HARDY WAY AT THAT TIME WITH THAT LOOK OF BEING IN A DAZE. PATIENT GAIT IS STEADY. WILL CONTINUE TO OBSERVE
[2019-07-23 11:39] VITALS: BP 120/88
--- NOTE | 2019-07-23 15:03 | NUR ---
RT Progress Note- Indra has participated very little in recreational groups or activities. At times patient "freezes" and is unable to respond verbally or physically. His thoughts continue to reflect suicidal themes; going back and forth on whether he should remain living or not. These thoughts occupy patient as a whole.
--- NOTE | 2019-07-23 16:15 | NUR ---
PATIENT TO NURSES STATION MOVING QUICKLY AND SMILING THEN STANDS INFRONT OF THE NURSES STATION DOOR, JUMPS UP AND YELLS LEYLA THROWING HIS ARMS IN THE AIR. ANODE WORKER OUT TO HARDY TO TALK TO PATIENT AND ESCORTED TO ROOM TO TAKE MEDICATION. MEDICATION TAKEN STATING EACH PILL THE "FATHER, SON & THE EDIS SPIRIT". PATIENT HAPPY AND SMILING WITH HIS INITIAL LETTER HE WROTE WHEN ARRIVING IN HAND.
--- NOTE | 2019-07-23 18:42 | NUR ---
FOR THE PAST HOUR PATIENT HAS HAD INCREASED AGGITATION. HELPER ELECTRICAL STRUGGLED WITH PATIENT TO CHANGE BRIEF. PATIENT STRUGGLING WITH HELPER ELECTRICAL TRYING TO ENTER SUPPYROOM. PATIENT COMBATIVE WITH CARES AND UNDRESSING WALKING NAKED IN HARDY. 1834 OLANZAPINE 5MG IM GIVEN TO RIGHT DELTOID WITH SECURITY STANDBY. WILL REPORT TO ONCOMING SHIFT.
[2019-07-23 20:44] VITALS: BP 150/128
[2019-07-23 22:46] VITALS: BP 118/56
--- NOTE | 2019-07-24 02:27 | NUR ---
PATIENT HAS BEEN LUCID OFF AND ON. HE HAS AWOKEN TWICE TO USE THE RESTROOM AND HE WAS LUCID. THEN WITHIN AN HOUR HE WAS USING BATHROOM AND NOT LUCID AND WAS CONFUSED. HE COULD NOT COMPREHEND HOW TO TAKE HIS PANTS DOWN OR TO SIT. PT BECAME OBSESSED WITH THE EXTRA STITCHED FOLDS IN PANTS AND BECAME MORE AGITATED HE TRIED TO RIP THE PANTS. HE WAS UNABLE TO BE REDIRECTED AND WOULD NOT HAND OVER THE PANTS. I HAD HIM SITTING IN RECLINER FOR A BIT BUT HE STILL OBSESSED OVER THE PANTS AND THEN BEGAN TAKING OFF HIS [place] BAND AND TRYING TO PUT IT ON THE WRONG FINGER AND IT WOULDN'T GO ON THAT FINGER AND HE WAS GETTING FRUSTRATED. I SUGGESTED HE TRY HIS RING FINGER AND POINTED THAT OUT TO HIM BUT HE WOULDN'T. HE FINALLY TRIED THE RING FINGER AND WAS ABLE TO GET IT BACK ON. PT GOT UP AND WAS WALKING FROM DINING ROOM BACK TO ROOM AND BACK HOLDING HIS PANTS. HE HAD YELLOW SHIRT AND BRIEFS ON. WORKED TO CALMLY TALK WITH PATIENT AND REDIRECT BACK TO BED OR TO A RECLINER. PT HAS URINATED SEVERAL TIMES TONIGHT. HE DENIES PAIN. PATIENT WAS GIVEN OLANZAPINE 5MG IM IN LEFT HIP AT 0133 FOR SEVERE AGITATION. PATIENT WAS FINALLY ABLE TO BE REDIRECTED TO HIS BED AT 0230. PT IS RESTING IN BED AT THIS TIME. BED IN LOW POSITION AND BED ALARM ON. WILL CONTINUE TO MONITOR.
--- NOTE | 2019-07-24 03:57 | NUR ---
IN PATIENT'S LUCID MOMENTS TONIGHT HE HAS MENTIONED 3 TO 4 TIMES THAT HE IS CONSTIPATED. I SPOKE WITH DR GLEASON ABOUT THIS WHEN HE CALLED IN. HE ORDERED SENNA 2 TABS BID. FIRST DOSE GIVEN TONIGHT. MOM 15MG ALSO GIVEN. FLUIDS ENCOURAGED. HE HAS HAD WATER TONIGHT AND APPLEJUICE. ABDOMEN IS ROUND BUT NOT FIRM. PT DID PASS SOME GAS LATE THIS EVENING. CONTINUING TO MONITOR. BOWEL SOUNDS PRESENT IN ALL 4 QUADS.
[2019-07-24 07:45] VITALS: BP 114/91
--- NOTE | 2019-07-24 10:53 | NUR ---
INITALLY THIS AM FOUND TO BE STANDING NAKED IN ROOM-STANDING NEXT TO BED AND RESPONDS MINIMALLY TO VERBAL COMMANDS.QUEING. APPEARS UMKEMPT-REFUSES TO ANSWER QUESTIONS WHEN ASKED. BECOMES INCREASINGLY AGITATED AND COMBATIVE TO SCHOOL JANITOR WITH ATTEMPTS TO COMPLETE DRESSING -REFUSED OFFERS OF BREAKFAST AND REFUSED AM MEDICATIONS-YELLING "BABY CHIQUITA""GET OUT SATAN" XYPREXA 5 MG GIVEEN IM IN LEFT VENTRAL GLUTEAL-OFFERS NO RESISTANCE. APPROX 90 MINUTES LATER HAD DRESSED SELF AND WAS CONVERSING WITH RN IN ROOM-DENIES SI/SH. DENIES C/O PAIN/DISCOMFORT. CONVERSATION FOCUSES ON SIKH TOPICS AND LIONG RAMBLING DIALOGUE ABOUT "THE LAST DAY TO BE JUDGED" THE DEVIL AND CHIQUITA. IS ALERT AND ORIENTED X 3.
--- NOTE | 2019-07-24 13:22 | NUR ---
Karlene spoke with Kd calvin's son about a [facility] for 07[facility]24 at 11 am. Karlene provided a report about the pt's need for memory care and that he might be assessed by Dr Real to rule out dementia. Kd rpeorted that peteglynn had already discussed any of the [facility] memory care would be a start. KARLENE also advisd they contact pt's [place] attorney as he still does not aheva DPOA and has not shown enough clarity to sign it yet. KARLENE reported the aily meeting time to Dr Gibbs and Kd will report this to his family.
--- NOTE | 2019-07-24 18:17 | NUR ---
REFUSED 1500 SEROQUEL DESPITE MULTIPLE ATTEMPTS TO GIVE WHOLE OR PUT IN APPLESAUCE-REMAINS IN ROOM WEARING JUST [id number] AND PANTS PUT ON BY STAFF 2-3 TIMES AND PT IS COMBATIVE WITH REDRESSING-UPON STAFF EXITING ROOM IMMEDIATLY TAKES OFF PANTS AND BRIEF AGAIN-WILL STRIKE OUT AT NURSING STAFF WHEN ATTEMPTS MADE TO LIE DOWN ON BED TO ALLOW FOR ASSESSMENT OF BLADDER-VOIDED ON SELF AND FLOOR AT APPROX 1700 AND WHEN APPROACHED TO PROVIDE PERINEAL/INCONTINENT CARE PULLED ABRUPTLY AWAY FROM STAFF SLIPPING IN URINE AND WOULD HAVE FALLEN TO FLOOR WITHOUT 2 STAFF HOLDING UPRIGHT-COMBATIVE AND SWEARING AT STAFF YELLING "TODAY IS JUDGEMENT DAY"PLACED IN GERICHAIR AND POSITIONED FOR COMFORT-BROUGHT TO DAYROOM FOR OBSERVATION BUT IS ATTEMPTING TO CRAWL OVER THE SIDE OF GERICHAIR-LAP BELT APPLIED -DR GLEASON CALLED AND ORDERS RECEIVED FOR LAP BELTIF UNABLE TO MAINTAIN SAFTEY WITH 1;1 OBSERVATION. 1;1 WHILE IN LAP DAVIAN ORDERED. GEODON 15 MG GIVEN IM IN RIGHT DELTOID AND LAP BELT REMOVED AT APPROX 1809. WAS IN LAP BELT FROM 1745 TO 181 BEFORE CALMING ENOUGH TO REMOVE LAP BELT VOIDE
[2019-07-24 19:14] LABS: BASOPHILS 0.7 % (0.0-2.0); HEMATOCRIT 43.6 % (42.0-52.0); HEMOGLOBIN 14.7 gm/dL (14.0-18.0); LYMPHOCYTES 26.1 % (24.0-44.0); MCH 32.6 pg (26.0-34.0); MCHC 33.6 g/dL (28.0-37.0); MCV 96.9 fL (80.0-100.0); MONOCYTES 11.8 % (1.0-8.0); PLATELET COUNT 259 thou/uL (150-400); POLYS 60.4 % (36.0-66.0); RDW 13.1 % (10.5-14.5); WBC 6.6 thou/uL (4.0-11.0)
[2019-07-24 19:16] LABS: URINE BILIRUBIN NEGATIVE (Negative); URINE BLOOD 1+ (Negative); URINE CLARITY CLEAR; URINE COLOR YELLOW; URINE GLUCOSE-RANDOM* NEGATIVE (Negative); URINE KETONES NEGATIVE (Negative); URINE LEUKOCYTES-REFLEX NEGATIVE (Negative); URINE NITRITE-REFLEX NEGATIVE (Negative); URINE PROTEIN (DIPSTICK) NEGATIVE (Negative); URINE SPECIFIC GRAVITY 1.025 (1.005-1.035); URINE UROBILINOGEN 0.2 E.U./dl (0.2-1.0)
[2019-07-24 19:24] LABS: SQUAMOUS 0-3 Few /LPF (0-3)
[2019-07-24 19:25] LABS: BACTERIA-REFLEX 1-9 Few /HPF (None Seen); CASTS None Seen /LPF (None Seen); CRYSTALS None Seen /LPF (None Seen); TRANSITIONAL EPITHEL CELL 0-3 Few /LPF (None Seen); URINE RBC 3-10 Few /HPF (0-2); URINE WBC-REFLEX None Seen /HPF (0-5)
[2019-07-24 19:33] LABS: CREATININE 1.7 mg/dL (0.7-1.3); POTASSIUM 4.6 mmol/L (3.5-5.1)
[2019-07-24 19:58] VITALS: BP 110/77
[2019-07-24 20:00] VITALS: BP 110/77
--- NOTE | 2019-07-25 03:12 | NUR ---
PATIENT WAS ANXIOUS AND ANGRY AT BEGINNING OF THE SHIFT. HE HAD HAD A GEODON INJECTION AROUND 1800 AND THIS NURSE CAME ON AT 1830. A UA HAD BEEN OBTAINED BY JAILYN ORELLANA BY PREVIOUS SHIFT AND RESULTS WERE RELAYED TO DOCTOR BUT NOT NITRATES OR LEUKOCYTES SEEN AND NO SIGNIFICANT BACTERIA. PATIENT WAS VERY IMPULSIVE. HE DID BECOME LUCID FOR A SHORT MOMENT. HE CAME TO HIS NURSE AND YELLED THAT HE WAS ANGRY AND THAT THIS IS NONSENSE. HE STATES HE HAS BEEN HERE FOR A WEEK NOW AND THAT ALL HE DOES IS SIT AND NOTHING IS BEING DONE TO TREAT HIM. HE THEN WENT BACK TO THE DINING ROOM FOR A SNACK AND THEN JUMPED UP FROM HIS CHAIR AND BEGAN JOGGING/RUNNING IN THE HARDY BACK TO HIS ROOM. STAFF WAS CALLING FOR HIM TO SLOW DOWN AND NOT RUN BUT HE CONTINUED. HE WAS IN HIS ROOM FOR A FEW MINUTES. WHEN I WENT BACK TO CHECK ON HIM HE HAD TUCKED HIMSELF IN BED AND WAS SLEEPING. PATIENT AWOKE AROUND 2200 AND USED THE RESTROOM WITH STANDBY ASSIST AND I ASSISTED HIM BACK TO THE BED. HE APPEARED LUCID AT THIS TIME WITH CLEAR THINKING. HE WENT BACK TO BED AND AWOKE AGAIN AT 0300 AND WAS NOT WEARING HIS BRIEFS. ASSISTED HIM TO BATHROOM AND NEW BRIEFS/PANTS PUT ON PATIENT. PATIENT IS WALKING AROUND ROOM AND SITTING ON BEDSIDE. NOT WILLING TO COME OUT TO DINING ROOM. FREQUENT CHECKS BY STAFF. BED IN LOW POSITON AND BED ALARM IS ON. CONTINUING TO MONITOR.
--- NOTE | 2019-07-25 03:28 | NUR ---
PATIENT BACK TO BED AT THIS TIME AND IS CALM, LUCID, CLEAR THINKING. BED ALARM ON AND BED IN LOW POSITON.
[2019-07-25 05:12] LABS: CALCIUM 8.8 mg/dL (8.5-10.1); CREATININE 1.5 mg/dL (0.7-1.3); POTASSIUM 3.9 mmol/L (3.5-5.1)
--- NOTE | 2019-07-25 05:48 | NUR ---
LABS REVIEWED WITH DR GLEASON LAST EVENING AND NOTED INCREASE IN BUN TO 44 FROM 22 AND CREATINE UP TO 1.7 FROM 1.4. I CALLED THE [facility] ALSO AND SPOKE WITH LUIS MORAN NP. SHE ORDERED A REPEAT BMP THIS MORNING TO CHECK AND SEE IF STILL UP. BLOOD DRAWN THIS AM. AWAITING RESULTS. PATIENT IS SLEEPING AT THIS TIME. BED ALARM ON AND BED IN LOW POSITON. NO FURTHER BEHAVIORS.
--- NOTE | 2019-07-25 09:44 | NUR ---
REFUSED AM MEDICATIONS,REFUSING BREAKFAST-STATING "GOD IS COMING IT IS THE RETURN OF THE JUDGEMENT" COMBATIVE WITH TTEMPTS TO GIVE IM ZYPREXA ORDERED FOR MED REFUSAL-SECURITY CONTACTED AND ESCORTED TO ROOM. REMAINS ON . DENIES C/O PAIN-REFUSES TO ALLOW AM PHYSICAL ASSESSMENT. GAIT UNSTEADY ATTEMPTING TO RUN IN HALWAYS
--- NOTE | 2019-07-25 13:13 | NUR ---
Gregor and Dr Gibbs met with family for a tele conference. Dr Gibbs proivided an update and GREGOR discussed d/c plans. Family is going to email [facility] paperwork today. GREGOR will send referral to [facility] on Monday.
--- NOTE | 2019-07-25 14:02 | NUR ---
PT REFUSED AM VS WHEN APPROACHED BY PRACTICE LEAD AT 0800-REATTEMPTED AT 1030 AFTER ADMINISTRATION OF IM ZYPREXA ADMINISTERED FOR MED REFUSAL WAS SLIGHTLY CALMER-MORE COOPERATIVE AFTER IM-CONTINUES TO REFUSE PO MEDICATIONS FOR CONSTIPATIONM DESPITE VERBALIZING TO PRACTICE LEAD HE COULD NOT EAT ANYTHING BECAUSE "NOTHING WAS GOING THROUGH" DID AGREE TO ALLOW VS BUT WHEN CUFF PLACED AND BEGAN TO TIGHTEN STARTED MOANING AND SCREAMING LOUDLY AND BECAME COMBATIVE WITH STAFF ATTEMPTING TO HIT,BITE AND SCRATCH. BP AT THIS TIME ON MACHINE REGISTERED AT 169/109-RADHA RECHECK AT APPROX 1100 222/82 -PT NOT COMBATIVE AT THE TIME OF BP BUT CONTINUES TO MOAN LOUDLY,SPEAKING INCOHERENTLY ABOUT "END TIMES,JUDGEMENT DAY AND CHIQUITA SAVANA"DR. KIM AND DR. GLEASON NOTIFIED OF ABOVE AND PTS CONTINUED REFUSAL TO TAKE PO MEDICATIONS. AT 1130 GEODON IM ADMINISTERD. 1145 IV STARTED IN RIGHT FOREARM AND NS AT 100 CC PER HR BEGAN PER MD ORDER. DID TAKE APPROX 240 CC OF OJ AND APPROX 200 CC H20 ALONG WITH PRUNE JUICE AT 1215. LARGE FORMED BM THIS AM. VS RECHECK AT APPROX 1220 142/65-P60 97.5-97,1;1 AT BEDSIDE DURING IV INFUSION PER UNIT POLICY
--- NOTE | 2019-07-25 17:59 | NUR ---
REMAINS COMBATIVE AND UNCOOPERATIVE-DESPITE 2 STAFF AT BEDSIDE-REFUSED 1500 SEROQUEL PO- IM ZYPREXA 5MG GIVEN IM LVG ASSISTED BY MD AND SECURITY D/T COMBATIVE BEHAVIOR.NO RESPONSE TO IM ZYPREXA GIVEN-PULLED IV TUBING OUT AND REFUSES TO LET GO OF IV STATING LOUDLY SEVERAL TIMES "PULL THE PLUG,PULL THE PLUG"DR. GLEASON AT BEDSIDE AND ORDERS RECEIVED TO DC IV FLUIDS D/T SEVERE AGITATION,INABILITY TO MAINTAIN. GEODON 15 MG RIGHT DELTOID AT 1554 WITH ASSIST OF 2 SECURITY STAFF, AND 2 NURSING STAFF. IV FLUIDS DC'D AT APPROX 1400-REMAINS ON 1;1 FOR SEVERE COMBATIVE BEHAVIOR. "
[2019-07-25 19:40] VITALS: BP 99/51
--- NOTE | 2019-07-26 01:13 | NUR ---
PATIENT AOX1 CONFUSED AND FORGEFUL. PATIENT IS ON 1:1 BECAUSE HE IS IMPULSIVE AND A FALL RISK. PATIENT TRIES TO SIT ON THE FLOOR WHEN TRYING TO HELP WITH ADL. PATIENT IS A TOTAL CARE AND NEEDS X2 ASSISTANCE WITH ADL, BED MOBILITY, TRANSFER AND TOILETING. CALLED D/T MED CHANGES, NOTIFIED THAT PATIENT TOOK ALL HS MEDS AND PUSHED FLUIDS. PATIENT SLEEPS ON AND OFF. PATIENT HAS NO S/S OF PAIN OR DISCOMFORT. BRUISES NOTED ON THE FACE, BLE AND BUE, SKIN IS WARM TO TOUCH. PATIENT IN BED ASLEEP AT THIS TIME BREATHING REGULAR AND UNLABOURED.
[2019-07-26 05:48] LABS: HEMATOCRIT 42.4 % (42.0-52.0); HEMOGLOBIN 14.7 gm/dL (14.0-18.0); MCH 33.9 pg (26.0-34.0); MCHC 34.7 g/dL (28.0-37.0); MCV 97.6 fL (80.0-100.0); RBC 4.35 mil/uL (4.50-6.00); RDW 13.5 % (10.5-14.5); WBC 6.3 thou/uL (4.0-11.0)
[2019-07-26 05:57] LABS: CALCIUM 8.9 mg/dL (8.5-10.1); CREATININE 1.3 mg/dL (0.7-1.3); POTASSIUM 3.5 mmol/L (3.5-5.1)
[2019-07-26 07:48] VITALS: BP 104/54
--- NOTE | 2019-07-26 23:21 | NUR ---
Assumed care of patient at change of shift. At that time he was seated in day room looking at and occasionally attempting to converse with his peers. His speech is nonsensical and variable. He attempts to communicate intermittentlly. His degree of orientation seems to be intermittent also. At times he can converse but is confused, and at other times he cannot talk at all and can only get 1 or 2 words out at a time. When in this state he startles easily and becomes weaker with his stand to sit and with his ambulation. He is oriented to 1 only. It was reported by day nurse that patient was having visual hallucinations and they were reported to Dr. Gibbs. He did not appear have and did not report any visual hallucinations. Pt. had bandaid to right forearm where a reported PIV site was and then d/c'd. Bandaid is dry and intact with no drainage noted and no swelling or leaking is noted at the IV site. Pt. ambulates with a walker. His gait is slow and at times he is weak and his gait becomes unstable. CA's x 2 assisted patient to bed after evening snacks. He took hs meds crushed and in some applesauce. No coughing or choking noted after swallowing. CA's x 2 assisted patient to bed. Bed alarm on. Pt does not report any problems and no signs or symptoms of pain or stress is noted.
[2019-07-26 23:49] VITALS: BP 104/54
--- NOTE | 2019-07-27 05:18 | NUR ---
Patient has required w/c for locomotion due to unsteady gait and weakness. Patient has been able to rest quietly throughout the night. Patient up x2 to use the bathroom, continent of bladder. Patient able to go back to sleep easily without difficulty. No further issues or concerns to report at this time.
[2019-07-27 08:45] VITALS: BP 128/74
--- NOTE | 2019-07-27 11:31 | NUR ---
MINIMALLY VERBAL THIS AM-WILL OCCASSIONALLY RESPOND TO YES OR NO QUESTIONS OTHERWISE OFFERS NO VERBAL RESPONSE. IMPULSIVE GETTING UP OUT OF BED AND CHAIR ON OWN AND GAIT IS ATAXIC-PULLS AWAY FROM STAFF WHEN ATTEMPTS MADE TO WALK WITH HIM CAUSING STUMBLE AND NEAR FALL IF STAFF HAD NOT BEEN AT SIDE. PLACED IN WC WITH LAP DAVIAN AFTER VOIDING LARGE AMOUNT CLEAR YELLOW URINE IN TOILET. DID TAKE AM MEDS IN BITES OF YOGURT-APPROX 1/2 OF ENSURE AND 0J WITH MUCH PROMPTING/ENCOURAGEMENT. INITITALLY REFUSES FOOD/FLUIDS AMD MEDS REQUIRING FREQUENT REAPPROACHES
--- NOTE | 2019-07-27 15:30 | NUR ---
REFUSED LUNCH DESPITE SEVERAL DIFFERENT STAFF ATTEMPTING TO FEED-CLOSES EYES AND MOUTH TIGHTLY AND LEANS AWAY FROM STAFF IF FRIGHTENED.SITTING IN DAYROOM IN WC WITH LAP DAVIAN-HIGH FALLS RISK PRECAUTIONS INCLUDING CHAIR ALARM,YELLOW T-SHIRT AND SOCKS-OFFERED TOILET Q 2-3 HOURS AND HAS BEEN VOIDING PER TOILET.
--- NOTE | 2019-07-27 17:47 | NUR ---
Patient did not attend group due to being sleep.
[2019-07-27 19:48] VITALS: BP 150/92
--- NOTE | 2019-07-27 23:22 | NUR ---
Assumed care at change of shift. At that time patient was in day room sitting in a w/c. A lap candy was on and placed correctly. Assessment completed. Pt. is alert and oriented to name only. He can also state . His head is slightly lowered and being supported by 1 hand. Right hand to right temporal lobe. A facial grimace is also noted and patient appears to be troubled. He is unable to state how he is feeling or what he is feeling. He also repeats the phrase "oh, no" intermittently. 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 He listened intently but could not contribute in any way to conversation. His physical assessment is without gross abnormalities except for bruising of red/purple noted to arms bilat., lungs diminished in bases, and bipedal pulses are weak. No signs or symptoms of pain or distress is currently noted.
--- NOTE | 2019-07-28 01:12 | NUR ---
Pt. taken by this nurse from day room to his room and to bed. Pt. stated, "thank God"! Bed alarm activated and this nurse using portable COW to chart in hallway directly outside patient's room to keep perez.
[2019-07-28 04:09] VITALS: BP 150/92
[2019-07-28 07:46] VITALS: BP 138/82
[2019-07-28 08:52] VITALS: BP 138/82
--- NOTE | 2019-07-28 09:27 | NUR ---
CONTINUES TO REFUSE FOOD-DID TAKE MAJORITY OF MEDICATIONS CRUSHED AND IN ENSURE-REQUIRES 2-3 HOURS OF FREQUENT PROMPTING AND QUEING TO FINISH MAJORITY OF ENSURE. SITTING QUIETLY IN DAYROOM IN -TOILETED Q 2-3 HOURS. REMIANS MOSTLY NON-VERBAL WILL OCCASSIONALY GROAN LOUDLY OR YELL OUT "OH GOD" "HELP ME GOD"POOR EYE CONTACT AND PULLS AWAY FROM STAFF WITH ANY ATTEMPTS AT CARES OR INTERVENTIONS IF FRIGHTENED. GAIT UNSTEADY WHEN UP-REQUIRES ASSIST OF 1-2 TO TRANSFER TO AND FROM TOILET D/T RESISTANCE WITH CARES AND UNSTEADINESS.REMAINS ON FALLS PRECAUTIONS.
--- NOTE | 2019-07-28 16:03 | NUR ---
Patient unable to participate in group due to cognitive deficit.
[2019-07-28 20:06] VITALS: BP 125/72
--- NOTE | 2019-07-28 22:26 | NUR ---
ASSUMED CARE ON 07/28/19 @ 19:15, SITTING IN THE DAY ROOM AT A TABLE READING THE NEWSPAPER. A&OX4, REPORTS IS ANXIOUS ABOUT BOWEL MOVEMENTS AND EATING. REFUSED MEALS TODAY, REPORTING THAT HE HAD NOT HAD A BM SO WOULD NOT EAT. DRINKING AN ENSURE CURRENTLY. REPORTS BM THIS AFTERNOON, SAYING, "I'M ALL CLEANED OUT. OBSERVED TO HAVE A BM @ 2200. PROPELS SELF IN W/C WITH A CHAIR ALARM IN PLACE. SAYS, "WATCH ME WALK", STANDS UP AND AMBULATES REFUSING ASSISTANCE, CHAIR ALARM SOUNDS, SAYING, "SEE I DON'T NEED ANY HELP". X1 ASSIST TO AMBULATE TO ROOM, TOILETED SELF AND LAID DOWN, BED IN LOW POSITION, BED ALARM SET.
[2019-07-29 01:46] VITALS: BP 125/72
--- NOTE | 2019-07-29 06:07 | NUR ---
SLEPT WELL, GETTING 7.4 HOURS OF SLEEP OVERNIGHT.
[2019-07-29 07:15] VITALS: BP 151/82
--- NOTE | 2019-07-29 12:21 | NUR ---
Sw sent referrals to [facility], [place] and [facility]. SW did speak to their admissions and provided a verabl report.
--- NOTE | 2019-07-29 12:52 | NUR ---
Pt will be evaluated by [facility], [facility] and [facility] for possible placment next week.
--- NOTE | 2019-07-29 15:29 | NUR ---
Francisco did not participate in either recreation therapy groups today so parts data writer met 1;1 with him. He was seated at dining table with his lunch still in front of him (untouched, 1400.) Patient had been noted to be "mixed up" at lunch time and unwilling to eat. Upon encouragement, he finished his cake and potato chips while talking about feeling "clearer" d/t not taking medications. 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
--- NOTE | 2019-07-29 15:51 | NUR ---
DID REFUSE BOTH BREAKFAST AND LUNCH BUT DID TAKE ENSURE SUPPLEMENT-STATING THAT PEOPLE ARE NOT GETTING FED AND INITALLY STATES HE WON'T EAT BREAKFAST TRAY BECAUSE 'IT WILL GO RIGHT THROUGH ME" LATER IN AM TELLS THAT STAFF HAVE MIXED UP ALL THE TRAYS AND MEDICINES AND THAT IS WHY HE WON'T EAT OR TAKE MEDICINE. GAIT STEADY WITH SBA X 1 REMAINS ON FALLS PRECAUTIONS D/T IMPULSIVE BEHAVIOR CONTINUED PSYCHOSIS. DID EVENTUALLY TAKE A BAG OF CHIPS-BOTTLE OF ENSURE AND 2 CARTONS OF APPLESAUCE AFTER 1;1 INTERACTION WITH RT STAFF.
[2019-07-29 19:21] VITALS: BP 154/88
--- NOTE | 2019-07-29 22:32 | NUR ---
Care assumed of patient at 1915: Patient seated in w/c in dayroom at start of shift. Patient greeted nurse with a smile and wave. Patient speaking clearly, forming sentences. Alert and oriented x4. Calm, pleasant and cooperative. Patient was able to process events that lead up to admission. 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 States that this made him have to sit at home which he is not used to. Reports that it caused increased anxiety and depression for him. Stated he "must have snapped". Reports that he does not remember the events of the last 3 days. States that he spoke with RT Sherrill, for quite awhile this afternoon. States that she was able to assist him recall and that he could not believe the behaviors he displayed. Showed remorse for behaviors. Patient denies anxiety and depression at this time. States that he got a card from his youngest son today in the mail which made a statement about him speaking to him on Monday. Patient was not able to remember speaking with his son. No delusional or paranoia behaviors observed. Spoke with patient about medication regimen. Education provided. Patient agreed to take Haldol liquid oral without being added to a drink. Patient then drank 120cc Ensure with encouragement. Patient stated that he has not been eating and understands that is not healthy. Spoke with patient about fall prevention. Patient stated that he has a chair alarm and anytime he gets up, it makes noise, so he knows he has to ask for help. Patient has been able to remain in a very clear state thus far this shift. Making good conversation with peers and nurse. Patient continent of bladder. Gait steady with nurse supervision from bathroom to bed. Patient able to retire to bed at a reasonable hour and has been resting quietly.
[2019-07-30 07:47] VITALS: BP 156/70
[2019-07-30 08:11] VITALS: BP 156/70
--- NOTE | 2019-07-30 10:43 | NUR ---
1040 RESUMMED CARE FROM OVERNIGHT SHIFT THIS AM, PATIENT IN ROOM QUIET. I GOT PATIENT UP TO DO HYGIENE AND COME TO DAY ROOM FOR BREAKFAST. PATIENT ATE TOOK MEDICATION WITHOUT INCIDENCE. PATIENT ABDOMEN SOFT ROUND BOWEL SOUNDS PRESENT, LUNGS CLEAR. PATIENT ORIENTED TIMES 4 DENIES SI/HI/AH/VH AT PRESENT PATIENT LOOKS BETTER THEN HE DID A FEW DAYS AGO. PATIENT CALM COOPERATIVE WILL CONTINUE TO MONITOR PATIENT FOR SAFETY AND BEHAVIORS.
--- NOTE | 2019-07-30 12:36 | NUR ---
RT Progress Note- Patient is not an active participant in recreation therapy groups at this time d/t his inability to verbalize and follow commands at times. When he is lucid, patient's thoughts are focused on things being "mixed up" and understanding the behaviors he is displaying rather than participation in leisure.
--- NOTE | 2019-07-30 15:54 | NUR ---
KARLENE and Dr carlisle met with pt and his family on the phone and discussed ed/c plans. This resulted in pt going to [facility] for skilled memory care, possibly d/c on TR. Karlene provided education about the process. Karlene then called [facility] and spoke with heidi in admissions. KARLENE then sent that referral. Earlier in the day KARLENE had spoken with Flora at [facility] , and Ronnell. Pt will be seen by PT and OT and this will be added to the referral tomorrow.
[2019-07-30 16:45] VITALS: BP 154/99
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
[2019-07-30 19:57] VITALS: BP 137/85
--- NOTE | 2019-07-30 22:14 | NUR ---
Care assumed of patient at 1915: Patient seated at dining table in dayroom at start of shift. Patient calm, pleasant and cooperative. Alert and oriented x4. Discussed meeting that he had with the social media assistant, doctor and his family today. Reports that he is frustrated about not being able to go home. States that he is needing PT/OT services. MD note reviewed and discussed with patient that it appears the plan is to discharge to a SNF to receive therapy services. Patient pleased with this. Patient denies anxiety and depression. Denies SI/HI/AH/VH. Denies pain and discomfort. Nurse thought that patient was a fall risk and placed a chair alarm under him. Patient stated that he no longer is and that the doctor told him he no longer needed a chair alarm. After chart review, that is correct. Patient has had good insight and judgement this evening. No delusional or paranoia behaviors observed. Patient drank 120cc water for nurse but declined further snack or fluids. Patient stated that he is "stuffed". Patient refused HS Senna but did take Haldol liquid as is with no issue. Patient requested for staff to assist him to bed. Patient continent of bladder then assisted to bed. Patient was able to fall asleep without difficulty and is resting quietly at this time.
[2019-07-31 07:40] VITALS: BP 138/90
--- NOTE | 2019-07-31 09:57 | NUR ---
CONTINUES TO HAVE ANXIOUS FACIAL EXPRESSION STATING REPEATADLY "EVERYTHING IS MESSED UP" "PEOPLE GOT THE WRONG FOOD: DID TAKE AM MEDICATIONS
--- NOTE | 2019-07-31 11:18 | NUR ---
Gregor spoke with therapy and pt was non compliant and unable to meet skilled criteria. Gregor then called Alberto [phone] and reported this. He reported that family wouyld like pt to go to [facility] memory care. GREGOR called Lisa there [phone] and confirmed this. Lisa stated that they would complete a virtual face to face today. Gregor provided the [email or web address] link and is waiting for a time to complete this task.
[2019-07-31 20:10] VITALS: BP 124/85
--- NOTE | 2019-08-01 03:25 | NUR ---
07-31-19 CARE TRANSFERED AT 191, OBSERVED PT SITTING IN DAY ROOM. 1935 PT AAOX1 PT PRESENTS ANXIOUS, BUT WAS CALM AND COOPERATIVE DURING NURSING ASSESSMENT. PT DENIES ANY PAIN BUT DID REPORT SOME TIMES HIS RIGHT WRIST HURTS, WHEN ASKED AGAIN ABOUT PAIN IN HIS RIGHT WRIST, PT STATED "it does not hurt right now". PT DENIES SI/SH/HI/AVH. DURING MEDICATION ADMIN. BUT REFUSED THE SENNA, PT STATED "i don't want to have diarrha"; ABD was active WNL IN ALL FOUR QUADS. OF NOTE, PLEASE REFER TO NURSING INTERVENTIONS FOR MORE INFORMATION. ZERO ACUTE DISTRESS NOTED.
[2019-08-01 07:51] VITALS: BP 162/78
--- NOTE | 2019-08-01 08:30 | EKG ---
[facility] [place] [address] ELECTROCARDIOGRAM REPORT Name: JOHN MCCAIN Room #: 517-A ADM IN M.R.#: [id number] Admission: 07/16/19 Attend Phys: Jeromy Gibbs DO Discharge: Date of : 34 Report #: [id number] THIS REPORT FOR: cc: Rocael Johnston MD, John MD Lundgren,Sheldon Fernández MD [facility] ~ THIS REPORT FOR: //name// [facility] Test Date: 2019-07-31 Test Time: 11:18:41 Pat Name: JOHN MCCAIN Department: Room: [facility] Gender: M Trolley Car Operator: Stephen HOGAN : 1930 Requested By: Jeromy Gibbs Order Number: [id number] MD: Sheldon Nielson Measurements Intervals [place] Rate: 98 P: 87 HI: 155 QRS: 64 QRSD: 82 T: 55 QT: 355 QTc: 454 Interpretive Statements Sinus tachycardia Atrial premature complexes Right atrial abnormality Compared to ECG 07/21/2019 12:00:49 No significant change was found Electronically Signed On 08-01-2019 8:28:27 CDT by Sheldon Nielson [email or web address] <ELECTRONICALLY SIGNED> By: Sheldon Nielson MD, [facility] 08/01/19 0828 [id number] Sheldon Nielson MD, [facility] /EPI
--- NOTE | 2019-08-01 09:11 | NUR ---
0700 ASSUMED CARE OF PATIENT, PATIENT AWAKE IN ROOM T THAT TIME. 0750 PATIENT UP FIXING BED AMB WITH STEADY GAIT. PATIENT QUICKLY SMILES AND SAYS WRITERS NAME STATING "OH OLIVIA I DON'T THINK I CAN DO THIS". PATIENT GRABS HIS HEAD AND STRUGGLES TO COMMUNICATE. PATIENT DENIES PAIN, LS CLEAR, BS ACTIVE. PATIENTS GOAL IS TO EAT BETTER TODAY AND PATIENTS CONCERN IS THAT HE FEELS HE IS STUCK IN THE MIDDLE. STATING "I AM NOT MOVING FORWRD OR BACKWARDS JUST STUCK IN THE MIDDLE". PATIENT IS AWARE OF BEING DC'D TODAY AND STATES "I DID NOT COMPLETE MY EVALUATION SO I AM NOT GOING TO BE READY TO GO YET". ART HISTORY INSTRUCTOR ASSURES PATIENT THAT EVERYTHING WILL BE COMPLETED FOR HIM TO LEVE TODAY. 0830 PATIENT SITTING AT TABLE FOR BREAKFAST AND JUST STARING. ART HISTORY INSTRUCTOR INSTRUCTS PATIENT TO TRY TO EAT AND PATIENT NEEDS TO BE ASSISTED TO START EATING. PATIENT EATS 40% OF MEAL. PATIENT UP AMBULATING IN HARDY AT THIS TIME.
--- NOTE | 2019-08-01 09:17 | NUR ---
SW requested a COVID 19 test and TB testing prior to d/c. Tests came back today and they were faxed to [facility]. A virtual meeting will occur at 9:30am. Gregor also spoke with pt;s son Alberto ambrocio am about d/c. Family is satisfied with this outcome.
[2019-08-01] MEDS ORDERED: XARELTO20 MG PO (09:36)
[2019-08-01] MEDS ORDERED: HALOPERIDOL2 MG/1 ML PO (09:37)
[2019-08-01] MEDS ORDERED: SENNA-TIME S T1 EACH PO (09:38)
[2019-08-01] MEDS ORDERED: MULTIVITAMINS PO (09:38)
[2019-08-01] MEDS ORDERED: REMERON 30 MG T30 M1 PO (09:38)
--- NOTE | 2019-08-01 10:18 | NUR ---
SW made packet and left it on the chart, FAXED d/c orders and summary to [facility]. Pt completed his intake interview and he will be going to [facility] AL with / supervision. [facility] is setting up transportation and thier refrigerated company driver will wait out in front of the hospital and call nurses station when he has arrived.
--- NOTE | 2019-08-01 11:22 | NUR ---
1015 FRETTED INSTRUMENTS INSPECTOR GAVE DC INSTRUCTIONS TO PATIENT, PATIENT VOICED UNDERSTANDING. FRETTED INSTRUMENTS INSPECTOR AND PATIENT TALKED ABOUT GOING TO A FACILITY AND PATIENT STATES "I DO NOT KNOW HOW HELPFUL THIS WILL BE". FRETTED INSTRUMENTS INSPECTOR EXPLAINS TO PATIENT ABOUT BEING POSITIVE AND ATTEMP TO MOVE FORWARD WITH WORKING WITH STAFF AND FAMILY TO GET THROUGH EVERYTHING. PATIENT IS ALERT AND ORIENTED X4. PATIENT SMILING, CALM & COOPERATIVE. 1030 FRETTED INSTRUMENTS INSPECTOR ACCOMPANIES PATIENT TO ROOM TO ASSIST PATIENT IN SHAVING AND GETTING HAIR BRUSHED FOR DISCHARGE. PATIENT BACK TO DAYROOM AMB WITH STEADY GAIT. WILL CONTINUE TO OBSERVE
--- NOTE | 2019-08-01 12:24 | NUR ---
KARLENE completed the POC and Dr Gibbs signed it. This was then faxed to [facility]
--- NOTE | 2019-08-01 16:22 | NUR ---
GREGOR got a call at 3pm that family had not completed the intake admisison paperwork for [facility] and did not ahve abed in the room for him yet. They asked for the d/c to be delayed to 6/5 at 8 am. Gregor reported this to Dr carlisle and he agreed. This was reported to nursing.
--- NOTE | 2019-08-01 17:55 | NUR ---
PATIENT UTILIZED THE CHANGE OF MENU OPTION AND REQUESTED SOMETHING DIFERENT FOR DINNER. PATIENT ATE 100% OF WHAT HE ASKED FOR. PATIENT HAS CALMED DOWN KNOWING HE WILL NOT BE DISCHARGED TODAY. 1800 PATIENT TO NURSES STATION STATING HE HAD SOME PHLEM HE COUGHED UP AND HAVING SOME SHORTNESS OF BREATH. PATIENT TO ROOM AND VS TAKEN BP-146/79 P-97 O2 SATS-96% LUNG SOUNDS CLEAR. PATIENT THEN STATES "I DO NOT THINK THEY CAN TAKE CARE OF ME OVER THERE WHERE I AM GOING, I AM BETTER OFF STAYING HERE". COPY WORKER TALKS WITH PATIENT AND PATIENT IS CALMER AT THIS MOMENT. WILL CONTINUE TO OBSERVE PATIENT. PATIENT IS AWARE OF DC AT 8AM ON 08/02/2019
--- NOTE | 2019-08-02 06:05 | NUR ---
08-01-19 CARE TRANSFERED AT 1915 OBSERVED PT WALKING IN HALLWAY. 1950 PT AAOX3 PRESENTS ANXIOUS AND REPORTED HE IS A LITTLE NERVOUS ABOUT THE MOVE TO [place] TOMORROW. PT WAS REASSURED, THAT THINGS WOULD BE ALRIGHT. PT WAS CALM AND COOPERATIVE THROUGHOUT NURSSING ASSESSMENT. PT DENIES PAIN AND SI/SH/HI/AVH. OF NOTE, PLEASE REFER TO NURSING INTERVENTIONS FOR MORE INFORMATION. ZERO ACUTE DISTRESS NOTED.
[2019-08-02 07:35] VITALS: BP 172/109
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
--- NOTE | 2019-08-02 09:29 | NUR ---
0700 ASSUMED CARE OF PATIENT, PATIENT IN BED AT THAT TIME. 0730 CONCRETING SUPERVISOR TO ROOM, PATIENT STILL IN BED. CONCRETING SUPERVISOR ENCOURAGES PATIENT TO GET UP AND GET READY FOR DISCHARGE. PATIENT MOAN STATING "IM NOT ABLE TO MOVE, IT IS WORSE THAN YESTERDAY, I CAN'T DO THIS THERE IS NO WAY". CONCRETING SUPERVISOR ENCOURAGES PATIENT THAT EVERYTHING WILL BE OK AND THAT WE CAN NOT CANCEL THE DC. LUNG SOUNDS CLEAR, BS ACTIVE, NO C/O PAIN, DENIES SI/HI. CONCRETING SUPERVISOR ASSISTS PATIENT WITH DRESSING AND PATIENT CLEANS UP IN THE BATHROOM. PATIENT TO DAYROOM FOR BREAKFAST MOANING WHILE HE WALKS. BP-172/109 P-108 R-18 TEMP- 97.6 O2 SATS 93%. PATIENT IS ANXIOUS AND WORRIED ABOUT LEAVING. PATIENT SITTING AT TABLE FOR BREAKFAST STATING "I CAN NOT EAT AND I WILL NOT BE ABLE TO EAT OVER THERE". PATIENT ATE ABOUT 70% OF MEAL. PATIENT CONTINUES TO SAY HE IS TO WEAK TO LEAVE AND GO ANYWHERE. 0835 PATIENT TRANSFERED TO AND PATIENT CONTINUES TO MOAN AND STATE "I CAN'T GO" PATIENT DC'D VIA TO TRANSPORT VEHICLE ACCOMPANIED BY PACKING LINE WORKER.
--- NOTE | 2019-08-05 23:17 | D ---
[facility] [place] [address] DISCHARGE SUMMARY Name: JOHN MCCAIN Room #: 517-[facility] .R.#: [id number] Admission: 07/16/19 Attend Phys: Jeromy Gibbs DO Discharge: 08/02/19 Date of : 34 Report #: [id number] THIS REPORT FOR: cc: Rocael Johnston MD,Jeromy Martinez MD, DO ~ THIS REPORT FOR: //name// CC: Jeromy Johnston DATE OF SERVICE: 08/01/2019 INPATIENT PSYCHIATRIC EVALUATION ATTENDING PHYSICIAN: Jeromy Gibbs DO TENT FINISHER AT THE TIME OF DISCHARGE: Chavez Sims MD DISCHARGE DIAGNOSES: Major depressive disorder, single episode, severe degree with psychotic features, only partial improvement; mild neurocognitive disorder, 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 The patient's medical comorbidities include history of deep venous thrombosis, on Xarelto; hypertension. 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 DISCHARGE DIET: Regular with Ensure Enlive twice per day. DISCHARGE MEDICATIONS: Xarelto 20 mg p.o. daily, 30-day script given; Haldol 2.5 mg in lactate form 0900, 1500 and 2100 for psychosis; senna docusate 2 tabs p.o. b.i.d. for bowel motility; multivitamin p.o. daily; mirtazapine 30 mg p.o. at bedtime for depression. LABORATORY DATA: Significant laboratories from this admission, 07/26/2019 white count 6.3, H and H of 14.7 and 42.4, platelet count 248. Chemistries on 07/26/2019, sodium 139, potassium 3.5, chloride 101, bicarbonate 32, anion gap 6, BUN 22, creatinine 1.3, estimated GFR 52, glucose 71, calcium 8.9. Psychiatric medical care will be by receiving facility. REASON FOR ADMISSION: Back on 07/16/2019 He initially presented to [facility] for suicidal ideation. There was [facility] [address] [place] [address] DISCHARGE SUMMARY Name: JIMENAMARYANAJOHN Room #: 517-[facility]#: [id number] Admission: 07/16/19 Attend Phys: Jeromy Gibbs DO Discharge: 08/02/19 Date of : 34 Report #: [id number] not a Geriatric Psychiatry Unit at that hospital, so he was transferred to [facility]. The patient lives with his , had been very anxious. Apparently, he had made some degree of suicidal gesture. HOSPITAL COURSE: When he was admitted, he was focused on having commited a grave error. From information on patient, recently had been hospitalized at [facility], [facility] according to the family. The patient was admitted to Geriatric Psychiatry Unit. SLUMS exam was done, which showed 22/30. He continued to have periods of freezing, so I elected to do Neuropsych testing. Mild neurocognitive disorder. Initially, the patient was going to go home with his but I advised care burden will be too high. The patient discharged to [facility]. He had morbid thinking. Vital Signs Stable PHYSICAL EXAMINATION: Frail. Normal Station: Normal gait. This is a well-developed, frail, ill, age appearing male. Attention fair. Concentration fair. Speech slow in conversational volume. No psychomotor agitation, no psychomotor retardation. Mood and affect congruent, restricted. Denied SI or HI. Denied Audiotry/ Visual Tactile hallucinations memory not formally tested, known to be impaired. Insight limited. Judgment impaired. Fund of knowledge below average. PROGNOSIS: For this patient is guarded given age of 88 with a neurodegenerative disorder. <ELECTRONICALLY SIGNED> By: Jeromy Gibbs DO 08/05/19 [id number] Jeromy Gibbs DO /nt
== END 2019-08-02 08:35 | DRG 57 ==
LOC: SBH 03:34
PROVIDERS: Hospitalist; Internal Medicine; Nurse Practitioner Family; ADMIT Psychiatry & Neurology Psychiatry
DX: G30.9 Alzheimer's disease, unspecified (principal); F02.81 Dementia in other diseases classified elsewhere, unspecified severity, with behavioral disturbance; N17.9 Acute kidney failure, unspecified; R45.851 Suicidal ideations; D68.59 Other primary thrombophilia; F01.51 Vascular dementia, unspecified severity, with behavioral disturbance; I10 Essential (primary) hypertension; F32.9 Major depressive disorder, single episode, unspecified; F41.9 Anxiety disorder, unspecified; E53.8 Deficiency of other specified B group vitamins; Z86.718 Personal history of other venous thrombosis and embolism; Z79.899 Other long term (current) drug therapy; Z79.01 Long term (current) use of anticoagulants; Z03.818 Encounter for observation for suspected exposure to other biological agents ruled out
CPT/HCPCS: 10880